=== PATIENT | male | born 1990 | race Caucasian/White ===

== ENCOUNTER 2016-08-11 03:39 | Emergency (ER) | payer BC ==
[~2016-08-11 03:39] MED LIST: HYDROCORTISONE30 G4 RC; IBUPROFEN800 MG PO; NO MEDICATIONS; PHENERGAN PO; TYLENOL #3 PO
== END 2016-08-11 04:22 | disposition home or self-care (01) ==
LOC: SED 03:39
DX: S91.331A Puncture wound without foreign body, right foot, initial encounter (principal); L25.9 Unspecified contact dermatitis, unspecified cause; Z23 Encounter for immunization; W10.9XXA Fall (on) (from) unspecified stairs and steps, initial encounter; Y92.009 Unspecified place in unspecified non-institutional (private) residence as the place of occurrence of the external cause
CPT/HCPCS: 90471; 90715; 99283

== ENCOUNTER 2016-08-18 02:54 | Emergency (ER) | payer BC ==
[2016-08-18 03:14] LABS: URINE SOURCE CLEAN CATCH
[2016-08-18 03:16] LABS: URINE APPEARANCE CLEAR; URINE BILIRUBIN NEG (NEG); URINE BLOOD NEG (NEG); URINE COLOR YELLOW; URINE GLUCOSE NEG (NORM); URINE KETONE NEG (NEG); URINE LEUKOCYTE ESTERASE NEG (NEG); URINE NITRATE NEG (NEG); URINE PH 5.5 (5-8); URINE PROTEIN NEG (NEG); URINE SPECIFIC GRAVITY >=1.030 (1.003-1.035); URINE UROBILINOGEN 0.2 MG/DL (NORM)
[2016-08-18 03:19] LABS: MICRO INDICATED? NO
[2016-08-18 03:24] LABS: BASOPHIL# 0.1 X10e3 (0-0.3); BASOPHIL% 0.7 % (0-2.5); EOSINOPHIL# 0.3 X10e3 (0-0.7); EOSINOPHIL% 3.2 % (0.0-7.0); HEMATOCRIT 44.2 % (38.0-50.0); HEMOGLOBIN 14.9 gm/dL (13.0-16.0); LYMPHOCYTE% 25.4 % (17.0-45.0); MEAN CORPUSCULAR HEMOGLOBIN 28.8 PG (28-34); MEAN CORPUSCULAR HGB CONC 33.9 g/dL (30-36); MEAN PLATELET VOLUME 8.6 FL (6.5-11.5); MONOCYTE# 0.9 X10e3 (0-1.0); MONOCYTE% 10.8 % (3.0-12.0); NEUTROPHIL# 4.7 X10e3 (1.5-7.1); NEUTROPHIL% 59.9 % (40-75); PLATELET COUNT 254 X10e3 (140-420); RED BLOOD COUNT 5.19 X10e (3.90-5.60); RED CELL DISTRIBUTION WIDTH 13.4 % (11.0-15.5); WHITE BLOOD COUNT 7.9 X10e3 (4.0-10.5)
[2016-08-18 03:25] LABS: DIFF IND NO
[2016-08-18 03:37] LABS: BLOOD UREA NITROGEN 12 mg/dL (9-23); CALCIUM SERUM 8.9 mg/dL (8.4-10.2); CARBON DIOXIDE 26 mmol/L (22-31); CHLORIDE 105 mmol/L (100-111); CREATININE SERUM 1.2 mg/dL (0.6-1.4); GLOM FILT RATE Estimated ABOVE60 mL/min (>60); GLUCOSE FASTING 93 mg/dL (70-110); POTASSIUM 3.9 mmol/L (3.5-5.1); SODIUM 136 mmol/L (135-145)
== END 2016-08-18 04:09 | disposition home or self-care (01) ==
LOC: SED 02:54
PROVIDERS: Emergency Medicine
DX: R10.9 Unspecified abdominal pain (principal); F17.200 Nicotine dependence, unspecified, uncomplicated
CPT/HCPCS: 36415; 80048; 81003; 85025; 96372; 99284; J1885

== ENCOUNTER → 2016-11-20 | Outpatient (CLI) | payer BC, OTHER ==
--- NOTE | ~2016-11-20 | CT2 ---
[facility] A Service of [facility] & [facility] RADIOLOGY TEXT RESULTS PATIENT: JESICA REZA JR LOCATION: [facility] : [birth year] UNIT #: [id number] AGE: [address]: Dhara Diego SEX: M ORDER DR: [id number] [address] [address] [id number] O MR#: [id number] #: [id number] NAME: JESICA REZA JR : 1990 SEX: M STUDY DATE/TIME: 11/20/2016 11:05 UNIT: [facility] ROOM: STUDY DESCRIPTION: CT Abd and Pelv W Cont Attending Physician: Kristan Reynolds Referring Physician: Kristan Reynolds Ordering Physician: Kristan Reynolds Primary Care Physician: Kristan Reynolds MEDICAL IMAGING REPORT This report is preliminary unless electronic signature is present. EXAM CT of the abdomen and pelvis with contrast. INDICATION Periumbilical abdominal pain for 2 months, as well as nausea. Most of the pain is also located on the left. TECHNIQUE Axial CT images were obtained from the dome of the diaphragm to the symphysis pubis following administration of oral and intravenous contrast material. FINDINGS Images through the lung bases are clear. The stomach and proximal small bowel are within normal limits. Liver and gallbladder appear normal, as do the stomach and proximal small bowel. Adrenal glands and kidneys also appear normal, as does the pancreas. No free fluid or adenopathy seen within the abdomen. There is no evidence of mechanical bowel obstruction. The appendix is visualized and is within normal limits. Urinary bladder and prostate gland are normal. I do not see any abnormality of the colon. There is small fat-containing umbilical hernia. This patient has some enlarged perirectal nodes that are new when compared to the exam from February 2009. The right perirectal node measures up to 9 mm, while a left node measures up to 1.2 cm. Again, these are new when compared to an exam from 2008, but were present on the prior CT from October 29, 2016. These are indeterminate, but I would suggest short-term CT followup in 3 months to document resolution or stability. No aggressive osseous abnormalities are seen. IMPRESSION No obvious etiology for the patient's symptomatology is identified. Solid organs appear unremarkable. There is no evidence of mechanical bowel STS. [facility] A Service of [facility] RADIOLOGY TEXT RESULTS PATIENT: JESICA REZA JR LOCATION: [facility] : [birth year] UNIT #: [id number] AGE: [address]: Dhara Diego SEX: M ORDER DR: obstruction. Patient does have prominent perirectal nodes. Clinical significance is uncertain. They could reflect benign reactive nodes, but do appear to be new when compared to an exam from February 2009. I would suggest short-term CT follow-up in 3 months to document resolution or stability. Dictated by... Linda Redman M.D. THIS IS AN ELECTRONICALLY VERIFIED REPORT Linda Redman M.D. at 11/23/2016 3:56 PM AFF/js TD: 11/20/2016 18:30 JOB #: [id number] MEDICAL IMAGING REPORT Page 1 of 1
== END | disposition home or self-care (01) ==
LOC: SCT 10:13
DX: R10.12 Left upper quadrant pain (principal); K59.09 Other constipation; F41.1 Generalized anxiety disorder
CPT/HCPCS: 74177; Q9967

== ENCOUNTER 2017-01-27 23:51 | Emergency (ER) | payer BC, OTHER ==
[~2017-01-27] VITALS: Ht 188 cm; Wt 86.2 kg
== END 2017-01-28 00:56 | disposition home or self-care (01) ==
LOC: SED 23:51
DX: J02.9 Acute pharyngitis, unspecified (principal)
CPT/HCPCS: 87651; 99283